=== PATIENT | female | born 1970 | race Two or more races ===

== ENCOUNTER 2024-07-10 08:32 | Emergency (ER) | payer SELFPAY ==
[2024-07-10 08:37] VITALS: BP 172/101; PULSE 81; RESP 16; TEMP 36.4; O2SAT 98; BMI 26.4
[2024-07-10 09:33] LABS: Appearance Urine Clear; Color Urine Dark Yellow; Glucose Urine UA Negative (Negative); Leukocyte Esterase Urine Negative (Negative); Nitrite Urine Negative (Negative); PH 5.5 (5.0-9.0); Specific Gravity - Urine 1.015 (1.005-1.025); Urine Blood Negative (Negative); Urine Ketones Negative (Negative); Urine Protein Negative (Neg-Trace)
--- NOTE | 2024-07-10 10:01 | ED_ITS ---
HPI - Female Genitourinary General Chief complaint: Urogenital-Female Stated complaint: UTI Time Seen by Provider: 07/10/24 09:33 Source: patient Mode of arrival: ambulatory Limitations: no limitations History of Present Illness ED Provider: Conrado Olmstead PA-C HPI Narrative: 54-year-old female with no past medical history presents to ED for re-evaluation of slight back pain and chills and slight dysuria. Patient states having increased urinary frequency with dysuria for the past 3 weeks patient was seen last week at urgent Care where a urine culture worse performed. Patient states then 2 days ago she was called that informed by urine culture came positive for urinary tract infection and they prescribed her antibiotics so patient has been on antibiotics for the past 2 days. Patient states came to the ED to be evaluated seem like antibiotic is not improving her symptoms. She denies any nausea, vomiting, rash, fever, chest pain, shortness of breath, leg swelling, calf pain, or pitting edema. Patient denies any pleurisy. Related Data Allergies Allergy/AdvReac Type Severity Reaction Status Date / Time No Known Allergies Allergy Verified 07/10/24 08:39 Review of Systems Review of Systems: Low back pain, dysuria, Yes all other systems are reviewed and are negative PMFSH Social History Social History Advance Directives: No Advance Directives Information Provided: No Do you have a plan to hurt others: No Plan Physical Exam Vital Signs: Vital Signs: Last Vital Signs Temp 97.6 F 07/10/24 11:22 Pulse 61 07/10/24 11:22 Resp 18 07/10/24 11:22 BP 143/92 H 07/10/24 11:22 Pulse Ox 97 07/10/24 11:22 O2 Del Method Room Air 07/10/24 11:22 BMI result Body Mass Index 26.4 Const: General: cooperative, healthy appearing, comfortable, no acute distress, well developed, alert, awake and Physically active Orientation/consciousness: patient oriented x3 HEENT: Head: Yes normal to inspection, Yes No palpable skull fracture present, Yes normocephalic and Yes atraumatic Eyes: General: appearance normal, both eyes and all related structures Neck: Neck: Yes normal visual inspection, Yes full ROM, Yes no lymphadenopathy, Yes no meningeal signs, Yes trachea midline, Yes supple, No anterior neck swelling and No tender Chest: Chest palpation & inspection: normal inspection of the chest and normal palpation of entire chest wall Resp: Effort & Inspection: normal respiratory effort and able to speak in complete sentences Auscultation: clear to auscultation bilaterally Cardio: Jugular venous distension: no JVD Heart sounds: S1 normal heart sound present and S2 normal heart sound present GI: Inspection: Yes normal to inspection Palpation (GI): Soft to palpation, not firm, nontender, no guarding and not rigid : General: Yes no CVA tenderness Back/Spine/Pelvis: Back: no CVA tenderness and No back tenderness Skin: General skin exam: no rashes or lesions noted, elasticity normal and turgor normal Neuro: General: patient oriented x3, gait normal, tone normal, Normal light to uch and pain sensation, no meningeal signs, no focal motor deficits, CN's II-XI intact bilaterally and normal sensation to monofilament Extrem: General: Yes normal to inspection, Yes full ROM and Yes capillary refill normal Psych: Appearance: grossly normal, well kempt and not disheveled Medical Decision Making Medical Decision Making MDM Narrative: 54-year-old female presently being treated for UTI presents to ED for dysuria, mild back pain with chills. Physical exam negative for any abdominal tenderness or spine tenderness on palpation. Negative for CVA or flanks. Urine came back clean. This was informed to patient's urine is clean so although she may still be having a UTI symptoms her urine today in the ED no longer shows any bacteria or infection antibiotics working. Patient informed to continue taking antibiotics. Patient then informed me she was around family who traveled. Patient denies any chest pain, shortness of breath, leg swelling, pitting edema, pleurisy, recent surgery. Patient has no history of blood clot or DVT. Patient has no personal history of DVT or PE. Due to patient being around traveling family members patient will be tested for covid and influenza 11:05AM: PATIENT'S COVID INFLUENZA SWABS CAME BACK NEGATIVE. PATIENT PRESENTLY WELL-APPEARING ASYMPTOMATIC. NEGATIVE FOR ANY ABDOMINAL TENDERNESS. NEGATIVE FOR ANY BACK TENDERNESS ON PALPATION. PATIENT HAS NO HISTORY OF IV DRUG USE OR IMMUNOCOMPROMISE DISEASES. NOT SUSPECTING ANY UROSEPSIS, KIDNEY STONES, OVARIAN CYST, OVARIAN FIBROIDS, PYELONEPHRITIS, [place]UDA EQUINUS, OSTEOMYELITIS, EPIDURAL ABSCESS, APPENDICITIS, CHOLECYSTITIS, DIVERTICULITIS, PANCREATITIS, SMALL-BOWEL OBSTRUCTION, CONSTIPATION, PERITONITIS, OR ABDOMINAL PERFORATION. NOT SUSPECTing MYOCARDIAL INFARCTION OR AORTIC DISSECTION. NOT SUSPECTING PE OR CHF. PATIENT EXPLAINED WORRISOME INFORMED TO RETURN TO THE ED IMMEDIATELY. Differential Diagnosis Differential Diagnoses: The differential diagnosis associated with the presentation includes Admission/Observation Consideration of admission/observation: Escalation of care including admission/observation considered Lab Data MDM Lab Attestation statement: I reviewed the patient's lab results. Labs: Lab Results 07/10/24 07/10/24 Range/Units 09:22 10:04 Urine Color Dark Yellow Urine Appearance Clear Urine pH 5.5 (5.0-9.0) Ur Specific [place] 1.015 (1.005-1.025) Urine Protein Negative (Neg-Trace) mg/dL Urine Glucose (UA) Negative (Negative) mg/dL Urine Ketones Negative (Negative) mg/dL Urine Blood Negative (Negative) Urine Nitrite Negative (Negative) Ur Leukocyte Esterase Negative (Negative) COVID-19 ([facility]) Negative (Negative) COVID-19 Clin Com See Note Influenza Type A (RADHA) Negative (Negative) Influenza Type B (RADHA) Negative (Negative) Influenza A & B Note See Note Independent Historian Clinical information obtained from an independent historian. History obtained from or confirmed by: Other (PATIENT) External Record Review External record reviewed: Other ([facility]) Discharge Plan Discharge Clinical Impression: Dysuria, Back pain Patient Disposition: Home, Self-Care Instructions: Dysuria (ED), Back Pain (ED) Additional Instructions: CONTINUE TAKING YOUR PRESCRIBED ANTIBIOTIC AND PYRIDIUM. RETURN TO THE ED FOR ABDOMINAL PAIN, BLOOD IN URINE, VOMITING, SEVERE BACK PAIN, FEVER, CHILLS, CHEST PAIN, SHORTNESS OF BREATH, CHEST PAIN INSPIRATION, FLANK PAIN, INCREASED URINARY FREQUENCY, WORSENING PAIN ON URINATION, VAGINAL DISCHARGE, VAGINAL BLEEDING, OR ANY OTHER CONCERNING SYMPTOMS. Stand Alone Forms: Work/School Release Interventions: ED Discharge Assessment Last Done: 07/10/24 11:22 Discharge Date/Time: 07/10/24 11:23 Print Language: [place]ian
[2024-07-10 10:27] LABS: IDNOW Serial# 152EDE1D; Influenza A Negative (Negative); Influenza B2 Negative (Negative)
[2024-07-10 10:28] LABS: COVID-19 Test Negative (Negative); IDNOW Serial# 08D9AD1C
[2024-07-10 11:22] VITALS: BP 143/92; PULSE 61; RESP 18; TEMP 36.4; O2SAT 97
== END 2024-07-10 11:23 | disposition home or self-care (01) ==
PROVIDERS: Physician Assistant; Emergency Provider Emergency Medicine
DX: M54.50 Low back pain, unspecified (principal); R30.0 Dysuria; R35.0 Frequency of micturition; Z11.52 Encounter for screening for COVID-19; Z79.899 Other long term (current) drug therapy
CPT/HCPCS: 81003; 87502; 87635; 99282; 99283